=== PATIENT | female | born 1975 | race African-American/Black ===

== ENCOUNTER 2020-08-05 12:45 | Inpatient (IN) | payer OTHER ==
--- NOTE | 2020-08-05 13:03 | BHS.RME ---
Substance Use & Tx History - Substance Use History Cocaine-Crack Substance amount: $200-300 Frequency of use: Daily Substance route: Smoking Date of Last Use: 08/05/20 (started age 14) Marijuana/Hashish Substance amount: 1 blunt Frequency of use: Less than 5 times a year Substance route: Smoking Date of Last Use: 08/05/20 (started age 14) Alcohol Substance amount: 1/2 E&J pint Frequency of use: Daily Substance route: Oral Date of Last Use: 08/05/20 (started age 14) Nicotine Substance amount: 1 pack Frequency of use: Daily Substance route: Smoking Date of Last Use: 08/05/20 (started age 9) Physical/Psych/Mental Status - Behavior General Behavior: Increased activity (restlessness, agitation) Eye Contact: Normal - Cooperativeness Cooperativeness: Cooperative - Thinking Thought Processes: Tight, Logical, Goal Directed - Physical Health Problems Is patient presently having any pain?: No Does patient presently have any injuries (include location): No Does patient currently have a fever: No Is patient : No CIWA Nausea/Vomitin Muscle Tremors: 2 Anxiety: 4-Mod. Anxious/Guarded Agitation: 4-Moderately Restless Paroxysmal Sweats: 3 Orientation: 0-Oriented Tacttile Disturbances: 0-None Auditory Disturbances: 0-None Visual Disturbances: 0-None Headache: 2-Mild CIWA-Ar Total Score: 17
--- NOTE | 2020-08-05 13:28 | HP ---
CIWA Score Nausea/Vomitin Muscle Tremors: 2 Anxiety: 4-Mod. Anxious/Guarded Agitation: 4-Moderately Restless Paroxysmal Sweats: 3 Orientation: 0-Oriented Tacttile Disturbances: 0-None Auditory Disturbances: 0-None Visual Disturbances: 0-None Headache: 2-Mild CIWA-Ar Total Score: 17 - Admission Criteria OASAS Guidelines: Admission for Medically Managed Detox: Requires at least one of the followin. CIWA greater than 12 2. Seizures within the past 24 hours 3. Delirium tremens within the past 24 hours 4. Hallucinations within the past 24 hours 5. Acute intervention needed for co occurring medical disorder 6. Acute intervention needed for co occurring psychiatric disorder 7. Severe withdrawal that cannot be handled at a lower level of care (continued vomiting, continued diarrhea, abnormal vital signs) requiring intravenous medication and/or fluids 8. Admitting History and Physical - Admission Chief Complaint: Ms. Haque is a 45 yo woman who presents to [facility] requesting admission to detox for alcohol use disorder. History of Present Illness: Ms. Haque is a 45 yo woman who presents to [facility] requesting admission to detox for alcohol use disorder. This is her first [facility] admission. 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 Nicotine Substance amount: 1 pack Frequency of use: Daily Substance route: Smoking Date of Last Use: 08/05/20 (started age 9) History Source: Patient Limitations to Obtaining History: No Limitations Admission ROS BHS - HPI Exam Limitations: No Limitations - Ebola screening Have you traveled outside of the country in the last 21 days: No Have you been sick,other than usual withdrawal symptoms: No Do you have a fever: No - Review of Systems Constitutional: No Symptoms Reported EENT: reports: Blurred Vision (uses reading glasses, not with her today) Respiratory: reports: No Symptoms reported Cardiac: reports: No Symptoms Reported GI: reports: Nausea : reports: No Symptoms Reported Musculoskeletal: reports: Back Pain (radiates anteriorly to bilateral, left greater than right hip area and lateral lower abdomen. Tx at home with Motrin ineffectively. Has had in the past and treated with left hip injection. Sx began about 4 days ago) Integumentary: reports: No Symptoms Reported Neuro: reports: No Symptoms reported Hematology: reports: No Symptoms Reported Psychiatric: reports: Anxious, Depressed (no SI) Patient History - Smoking Cessation Smoking history: Current every day smoker Have you smoked in the past 12 months: Yes Aproximately how many cigarettes per day: 20 Hx Chewing Tobacco Use: No Initiated information on smoking cessation: Yes 'Breaking Loose' booklet given: 08/05/20 Admission Physical Exam BHS - Vital Signs Vital Signs: BP 146/88, HR 87, RR 12, temp 97.6 UDS: THC, GEM IRINA 0.000 - Physical General Appearance: Yes: Nourished, Appropriately Dressed, Moderate Distress (low back pain) HEENTM: Yes: EOMI, Hearing grossly Normal, Normocephalic, Normal Voice Respiratory: Yes: Lungs Clear, No Respiratory Distress, No Accessory Muscle Use Neck: Yes: Within Normal Limits, Supple Breast: Yes: Breast Exam Deferred Cardiology: Yes: Regular Rhythm, Regular Rate Abdominal: Yes: Normal Bowel Sounds, Non Tender, Soft, Protuberent Genitourinary: Yes: Other (deferred) Back: Yes: Normal Inspection Musculoskeletal: Yes: Gait Steady Extremities: Yes: Normal Inspection, Non-Tender Neurological: Yes: Alert, Motor Strength 5/5, Normal Response, Other (intact LT in legs) Integumentary: Yes: Within Normal Limits - Diagnostic (1) Alcohol abuse with withdrawal, uncomplicated Current Visit: Yes Status: Acute (2) Cocaine abuse Current Visit: Yes Status: Acute (3) Cannabis abuse Current Visit: Yes Status: Acute (4) Nicotine dependence Current Visit: Yes Status: Acute Qualifiers: Nicotine product type: cigarettes Substance use status: uncomplicated Qualified Code(s): F17.210 - Nicotine dependence, cigarettes, uncomplicated (5) HTN (hypertension) Current Visit: Yes Status: Chronic (6) Diabetes Current Visit: Yes Status: Chronic (7) Bipolar 1 disorder Current Visit: Yes Status: Chronic (8) Low back pain Current Visit: Yes Status: Acute Qualifiers: Chronicity: acute Comment: 1. by hx, hip pain treated with injection, this pain is similar per pt 2. trial of NSAIDs 3. Lidoderm patch Cleared for Admission S - Detox or Rehab [facility] Level of Care: Medically Managed Detox Regimen/Protocol: Librium Breathalyzer - Breathalyzer Breathalyzer: 0 Inpatient Rehab Admission - Rehab Decision to Admit Inpatient rehab admission?: No
[2020-08-05] MEDS ORDERED: MAGNESIUM HYDROX 2400MG/30ML ORAL SUSPENSION 30 ML CUP PO PRN (13:51)
[2020-08-05] MEDS ORDERED: NICOTINE POLACRILEX 2 MG GUM BUC PRN (13:51)
[2020-08-05] MEDS ORDERED: BISMUTH SUBSALICYLATE 262 MG/15 ML BTL PO PRN (13:51)
[2020-08-05] MEDS ORDERED: ONDANSETRON *ODT* 4 MG TABLET SL PRN (13:51)
[2020-08-05] MEDS ORDERED: chlordiazePOXIDE HCL 25 MG CAPSULE PO PRN (13:51)
[2020-08-05] MEDS ORDERED: MAGNESIUM CITRATE 300 ML BOTTLE PO PRN (13:51)
[2020-08-05] MEDS ORDERED: ACETAMINOPHEN 325 MG TABLET (FP) PO PRN ×2 (13:51)
[2020-08-05] MEDS ORDERED: MAG HYDROX/AL HYDROX/SIMETH 30 ML UNIT-DOSE CUP PO PRN (13:51)
[2020-08-05] MEDS ORDERED: MENTHOL/PHENOL 1 EACH UD MM PRN (13:51)
[2020-08-05] MEDS ORDERED: IBUPROFEN 400 MG TABLET (FP) PO ONE (13:53)
[2020-08-05] MEDS ORDERED: METHOCARBAMOL 500 MG TABLET ONE (13:54)
[2020-08-05] MEDS ORDERED: LIDOCAINE 5% TOPICAL PATCH TP PRN (13:56)
[2020-08-05 13:57] VITALS: BMI 32.3
[2020-08-05] MEDS: IBUPROFEN 400 MG TABLET (FP) PO PRN ×2 (13:57→18:14)
[2020-08-05] MEDS: METHOCARBAMOL 500 MG TABLET PO PRN ×2 (13:58→22:17)
[2020-08-05] MEDS ORDERED: hydrOXYzine PAMOATE 25 MG CAPSULE (FP) PO SCH (14:00)
[2020-08-05] MEDS ORDERED: hydrOXYzine PAMOATE 25 MG CAPSULE (FP) PO PRN (14:31)
[2020-08-05] MEDS: NICOTINE 21 MG/24 HOURS TOPICAL PATCH TD SCH (14:39)
[2020-08-05] MEDS: metFORMIN HCL 500 MG TABLET (FP) PO SCH ×2 (14:44→17:16)
[2020-08-05 17:39] LABS: ALBUMIN 3.9 g/dl (3.4-5.0); BILIRUBIN,TOTAL 0.4 mg/dL (0.2-1); BLOOD UREA NITROGEN 8.1 mg/dL (7-18); CREATININE 0.9 mg/dL (0.55-1.3); POTASSIUM 3.8 mmol/L (3.5-5.1); TOT PROT 7.7 g/dl (6.4-8.2)
[2020-08-05 17:45] LABS: HEMATOCRIT 39.2 % (32.4-45.2); HEMOGLOBIN 13.4 GM/dL (10.7-15.3); MCH 31.5 pg (25.7-33.7); MCHC 34.3 g/dl (32.0-36.0); MEAN PLT VOLUME 9.1 fl (7.5-11.1); PLATELET COUNT 344 K/MM3 (134-434); RBC 4.26 M/mm3 (3.60-5.2); WHITE BLOOD COUNT 7.9 K/mm3 (4.0-10.0)
[2020-08-05] MEDS: chlordiazePOXIDE HCL 25 MG CAPSULE PO SCH ×2 (18:14→22:17)
[2020-08-05] MEDS ORDERED: LIDOCAINE PATCH REMOVAL MC SCH (22:00)
[2020-08-05] MEDS: MELATONIN 5 MG TABLETS PO SCH (22:17)
[2020-08-05] MEDS: THIAMINE HCL 100 MG TABLET (FP) PO SCH (22:17)
[2020-08-06] MEDS: chlordiazePOXIDE HCL 25 MG CAPSULE PO SCH ×4 (06:23→23:30)
[2020-08-06] MEDS: metFORMIN HCL 500 MG TABLET (FP) PO SCH ×2 (06:23→17:25)
[2020-08-06] MEDS: METHOCARBAMOL 500 MG TABLET PO PRN ×2 (06:24→17:26)
[2020-08-06] MEDS: IBUPROFEN 400 MG TABLET (FP) PO PRN (06:24)
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
[2020-08-06] MEDS ORDERED: diphenhydrAMINE HCL 50 MG CAPSULE PO PRN (10:01)
--- NOTE | 2020-08-06 10:25 | EKG ---
Test Reason : Blood Pressure : / mmHG Vent. Rate : 080 BPM Atrial Rate : 080 BPM P-R Int : 164 ms QRS Dur : 072 ms QT Int : 386 ms P-R-T Axes : 044 008 045 degrees QTc Int : 445 ms NORMAL SINUS RHYTHM NORMAL ECG WHEN COMPARED WITH ECG OF 05-AUG-2020 12:43, NO SIGNIFICANT CHANGE WAS FOUND Confirmed by HIMANSHU CHAO MD ([id number]) on 08/06/2020 10:25:37 AM Referred By: Confirmed By:HIMANSHU CHAO MD
[2020-08-06] MEDS: NICOTINE 21 MG/24 HOURS TOPICAL PATCH TD SCH (10:43)
[2020-08-06] MEDS: PRENATAL VITAMINS W/ FOLIC ACID TABLET (FP) PO SCH (10:43)
[2020-08-06] MEDS ORDERED: LIDOCAINE 5% TOPICAL PATCH TP ONE (11:57)
--- NOTE | 2020-08-06 12:02 | PN ---
S CIWA - CIWA Score Nausea/Vomitin-No Nausea/No Vomiting Muscle Tremors: 3 Anxiety: 2 Agitation: 3 Paroxysmal Sweats: 2 Orientation: 0-Oriented Tacttile Disturbances: 0-None Auditory Disturbances: 0-None Visual Disturbances: 0-None Headache: 0-None Present CIWA-Ar Total Score: 10 S Progress Note (SOAP) Subjective: low back pain sweats interrupted sleep Objective: 08/06/20 12:01 Vital Signs Temperature 97.1 F L 08/06/20 08:52 Pulse Rate 90 08/06/20 08:52 Respiratory Rate 18 08/06/20 08:52 Blood Pressure 107/48 L 08/06/20 08:52 O2 Sat by Pulse Oximetry (%) 97 08/06/20 08:52 Laboratory Tests 08/05/20 08/05/20 08/05/20 14:02 14:25 14:25 WBC 7.9 RBC 4.26 Hgb 13.4 Hct 39.2 MCV 92.0 MCH 31.5 MCHC 34.3 RDW 13.0 Plt Count 344 MPV 9.1 Sodium 136 Potassium 3.8 Chloride 104 Carbon Dioxide 24 Anion Gap 7 L BUN 8.1 Creatinine 0.9 Est GFR (CKD-EPI)AfAm 88.25 Est GFR (CKD-EPI)NonAf 76.14 POC Glucometer 177 Random Glucose 157 H Calcium 9.0 Total Bilirubin 0.4 AST 10 L ALT 13 Alkaline Phosphatase 99 Total Protein 7.7 Albumin 3.9 Syphilis Serology RPR Titer COVID-19 (ANNIKA) HIV Ag/Ab Combo Qual 08/05/20 08/05/20 08/05/20 14:25 14:25 14:25 WBC RBC Hgb Hct MCV MCH MCHC RDW Plt Count MPV Sodium Potassium Chloride Carbon Dioxide Anion Gap BUN Creatinine Est GFR (CKD-EPI)AfAm Est GFR (CKD-EPI)NonAf POC Glucometer Random Glucose Calcium Total Bilirubin AST ALT Alkaline Phosphatase Total Protein Albumin Syphilis Serology Reactive A* RPR Titer COVID-19 (ANNIKA) Not detected HIV Ag/Ab Combo Qual Negative 08/05/20 08/05/20 08/06/20 14:25 16:51 06:22 WBC RBC Hgb Hct MCV MCH MCHC RDW Plt Count MPV Sodium Potassium Chloride Carbon Dioxide Anion Gap BUN Creatinine Est GFR (CKD-EPI)AfAm Est GFR (CKD-EPI)NonAf POC Glucometer 129 150 Random Glucose Calcium Total Bilirubin AST ALT Alkaline Phosphatase Total Protein Albumin Syphilis Serology RPR Titer Reactive 1:1 H COVID-19 (ANNIKA) HIV Ag/Ab Combo Qual labs noted aaox3 lying in bed no acute distress Assessment: 08/06/20 12:01 withdrawals Plan: continue detox lidocaine patch ordered motrin 800mg prn roboxin prn
[2020-08-06] MEDS ORDERED: LIDOCAINE PATCH REMOVAL MC SCH (22:00)
[2020-08-06] MEDS: MIRTAZAPINE 15 MG TABLET (FP) PO SCH (23:29)
[2020-08-06] MEDS: THIAMINE HCL 100 MG TABLET (FP) PO SCH (23:29)
[2020-08-06] MEDS: MELATONIN 5 MG TABLETS PO SCH (23:29)
[2020-08-07] MEDS: chlordiazePOXIDE HCL 25 MG CAPSULE PO SCH ×4 (05:28→21:59)
[2020-08-07] MEDS: IBUPROFEN 400 MG TABLET (FP) PO PRN (05:29)
[2020-08-07] MEDS: METHOCARBAMOL 500 MG TABLET PO PRN ×2 (05:29→16:59)
[2020-08-07] MEDS: metFORMIN HCL 500 MG TABLET (FP) PO SCH ×2 (07:00→16:59)
[2020-08-07] MEDS: LIDOCAINE 5% TOPICAL PATCH TP SCH (11:52)
[2020-08-07] MEDS: PRENATAL VITAMINS W/ FOLIC ACID TABLET (FP) PO SCH (11:53)
[2020-08-07] MEDS: NICOTINE 21 MG/24 HOURS TOPICAL PATCH TD SCH (11:53)
--- NOTE | 2020-08-07 18:43 | PN ---
S CIWA - CIWA Score Nausea/Vomitin-No Nausea/No Vomiting Muscle Tremors: 2 Anxiety: 4-Mod. Anxious/Guarded Agitation: 0-Normal Activity Paroxysmal Sweats: 2 Orientation: 0-Oriented Tacttile Disturbances: 0-None Auditory Disturbances: 0-None Visual Disturbances: 1-Very Mild Sensitivity Headache: 0-None Present CIWA-Ar Total Score: 9 BHS Progress Note (SOAP) Subjective: Anxious, Fatigue, Sweating, Tremors, Body Aches. Objective: Patient A & O X 3; In No Acute Distress. 08/07/20 18:41 Vital Signs Temperature 97.5 F L 08/07/20 17:32 Pulse Rate 93 H 08/07/20 17:32 Respiratory Rate 16 08/07/20 17:32 Blood Pressure 103/63 08/07/20 17:32 O2 Sat by Pulse Oximetry (%) 100 08/07/20 17:32 Laboratory Tests 08/05/20 08/05/20 08/05/20 14:02 14:25 14:25 WBC 7.9 RBC 4.26 Hgb 13.4 Hct 39.2 MCV 92.0 MCH 31.5 MCHC 34.3 RDW 13.0 Plt Count 344 MPV 9.1 Sodium 136 Potassium 3.8 Chloride 104 Carbon Dioxide 24 Anion Gap 7 L BUN 8.1 Creatinine 0.9 Est GFR (CKD-EPI)AfAm 88.25 Est GFR (CKD-EPI)NonAf 76.14 POC Glucometer 177 Random Glucose 157 H Calcium 9.0 Total Bilirubin 0.4 AST 10 L ALT 13 Alkaline Phosphatase 99 Total Protein 7.7 Albumin 3.9 Syphilis Serology RPR Titer COVID-19 (ANNIKA) HIV Ag/Ab Combo Qual 08/05/20 08/05/20 08/05/20 14:25 14:25 14:25 WBC RBC Hgb Hct MCV MCH MCHC RDW Plt Count MPV Sodium Potassium Chloride Carbon Dioxide Anion Gap BUN Creatinine Est GFR (CKD-EPI)AfAm Est GFR (CKD-EPI)NonAf POC Glucometer Random Glucose Calcium Total Bilirubin AST ALT Alkaline Phosphatase Total Protein Albumin Syphilis Serology Reactive A* RPR Titer COVID-19 (ANNIKA) Not detected HIV Ag/Ab Combo Qual Negative 08/05/20 08/05/20 08/06/20 14:25 16:51 06:22 WBC RBC Hgb Hct MCV MCH MCHC RDW Plt Count MPV Sodium Potassium Chloride Carbon Dioxide Anion Gap BUN Creatinine Est GFR (CKD-EPI)AfAm Est GFR (CKD-EPI)NonAf POC Glucometer 129 150 Random Glucose Calcium Total Bilirubin AST ALT Alkaline Phosphatase Total Protein Albumin Syphilis Serology RPR Titer Reactive 1:1 H COVID-19 (ANNIKA) HIV Ag/Ab Combo Qual 08/06/20 08/07/20 08/07/20 16:53 05:32 16:48 WBC RBC Hgb Hct MCV MCH MCHC RDW Plt Count MPV Sodium Potassium Chloride Carbon Dioxide Anion Gap BUN Creatinine Est GFR (CKD-EPI)AfAm Est GFR (CKD-EPI)NonAf POC Glucometer 205 192 144 Random Glucose Calcium Total Bilirubin AST ALT Alkaline Phosphatase Total Protein Albumin Syphilis Serology RPR Titer COVID-19 (ANNIKA) HIV Ag/Ab Combo Qual Lab Results noted. Detox Admission RPR Result noted: Reactive A; Reactive; Titer 1:1. Patient reports that she completed treatment for Syphilis in the past. 08/07/20 18:42 Assessment: 08/07/20 18:42 WITHDRAWAL SYMPTOMS. REACTIVE RPR. Plan: Continue Detox. Increase Daily Oral Water Intake. Encourage Ambulation.
[2020-08-07] MEDS: MIRTAZAPINE 15 MG TABLET (FP) PO SCH (21:57)
[2020-08-07] MEDS: MELATONIN 5 MG TABLETS PO SCH (21:58)
[2020-08-07] MEDS: THIAMINE HCL 100 MG TABLET (FP) PO SCH (21:58)
[2020-08-08] MEDS ORDERED: chlordiazePOXIDE HCL 10 MG CAPSULE PO PRN
[2020-08-08] MEDS: METHOCARBAMOL 500 MG TABLET PO PRN ×2 (06:38→17:54)
[2020-08-08] MEDS: chlordiazePOXIDE HCL 10 MG CAPSULE PO SCH ×3 (06:38→17:53)
[2020-08-08] MEDS: metFORMIN HCL 500 MG TABLET (FP) PO SCH ×2 (06:38→17:53)
[2020-08-08] MEDS: PRENATAL VITAMINS W/ FOLIC ACID TABLET (FP) PO SCH (12:14)
[2020-08-08] MEDS: LIDOCAINE 5% TOPICAL PATCH TP SCH (12:14)
[2020-08-08] MEDS: NICOTINE 21 MG/24 HOURS TOPICAL PATCH TD SCH (12:14)
--- NOTE | 2020-08-08 17:15 | PN ---
S CIWA - CIWA Score Nausea/Vomitin-No Nausea/No Vomiting Muscle Tremors: 2 Anxiety: 1-Mildly Anxious Agitation: 1-Slight > Activity Paroxysmal Sweats: 2 Orientation: 0-Oriented Tacttile Disturbances: 0-None Auditory Disturbances: 0-None Visual Disturbances: 0-None Headache: 0-None Present CIWA-Ar Total Score: 6 BHS Progress Note (SOAP) Subjective: Back pain Objective: 08/08/20 17:12 Last Vital Signs Temp Pulse Resp BP Pulse Ox 98.0 F 63 20 105/52 L 98 08/08/20 05:37 08/08/20 05:37 08/08/20 05:37 08/08/20 05:37 08/08/20 05:37 Laboratory Tests 08/05/20 08/05/20 08/05/20 14:02 14:25 14:25 WBC 7.9 RBC 4.26 Hgb 13.4 Hct 39.2 MCV 92.0 MCH 31.5 MCHC 34.3 RDW 13.0 Plt Count 344 MPV 9.1 Sodium 136 Potassium 3.8 Chloride 104 Carbon Dioxide 24 Anion Gap 7 L BUN 8.1 Creatinine 0.9 Est GFR (CKD-EPI)AfAm 88.25 Est GFR (CKD-EPI)NonAf 76.14 POC Glucometer 177 Random Glucose 157 H Calcium 9.0 Total Bilirubin 0.4 AST 10 L ALT 13 Alkaline Phosphatase 99 Total Protein 7.7 Albumin 3.9 Syphilis Serology RPR Titer COVID-19 (ANNIKA) HIV Ag/Ab Combo Qual 08/05/20 08/05/20 08/05/20 14:25 14:25 14:25 WBC RBC Hgb Hct MCV MCH MCHC RDW Plt Count MPV Sodium Potassium Chloride Carbon Dioxide Anion Gap BUN Creatinine Est GFR (CKD-EPI)AfAm Est GFR (CKD-EPI)NonAf POC Glucometer Random Glucose Calcium Total Bilirubin AST ALT Alkaline Phosphatase Total Protein Albumin Syphilis Serology Reactive A* RPR Titer COVID-19 (ANNIKA) Not detected HIV Ag/Ab Combo Qual Negative 08/05/20 08/05/20 08/06/20 14:25 16:51 06:22 WBC RBC Hgb Hct MCV MCH MCHC RDW Plt Count MPV Sodium Potassium Chloride Carbon Dioxide Anion Gap BUN Creatinine Est GFR (CKD-EPI)AfAm Est GFR (CKD-EPI)NonAf POC Glucometer 129 150 Random Glucose Calcium Total Bilirubin AST ALT Alkaline Phosphatase Total Protein Albumin Syphilis Serology RPR Titer Reactive 1:1 H COVID-19 (ANNIKA) HIV Ag/Ab Combo Qual 08/06/20 08/07/20 08/07/20 16:53 05:32 16:48 WBC RBC Hgb Hct MCV MCH MCHC RDW Plt Count MPV Sodium Potassium Chloride Carbon Dioxide Anion Gap BUN Creatinine Est GFR (CKD-EPI)AfAm Est GFR (CKD-EPI)NonAf POC Glucometer 205 192 144 Random Glucose Calcium Total Bilirubin AST ALT Alkaline Phosphatase Total Protein Albumin Syphilis Serology RPR Titer COVID-19 (ANNIKA) HIV Ag/Ab Combo Qual 08/08/20 08/08/20 06:37 16:41 WBC RBC Hgb Hct MCV MCH MCHC RDW Plt Count MPV Sodium Potassium Chloride Carbon Dioxide Anion Gap BUN Creatinine Est GFR (CKD-EPI)AfAm Est GFR (CKD-EPI)NonAf POC Glucometer 135 168 Random Glucose Calcium Total Bilirubin AST ALT Alkaline Phosphatase Total Protein Albumin Syphilis Serology RPR Titer COVID-19 (ANNIKA) HIV Ag/Ab Combo Qual Labs reviewed: hyperglycemia and abnormal RPR noted Assessment: 08/08/20 17:13 Withdrawal sxs Noted with hyperglycemia and latent syphilis Plan: Continue detox Encourage PO water intake Hyperglycemia: secondary to DMT2, monitor FS, continue diabetic regimen 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
[2020-08-08] MEDS: IBUPROFEN 400 MG TABLET (FP) PO PRN (17:55)
--- NOTE | 2020-08-08 22:12 | DS ---
[facility] Detox Discharge Summary Admission Date: 08/05/20 Discharge Date: 08/09/20 - History Present History: Alcohol Dependence, Cannabis Dependence, Cocaine Dependence Pertinent Past History: NICOTINE DEP HTN +RPR DM MOOD D/O - Physical Exam Results Vital Signs: Vital Signs Temperature 97.1 F L 08/08/20 17:08 Pulse Rate 75 08/08/20 17:08 Respiratory Rate 18 08/08/20 17:08 Blood Pressure 135/66 08/08/20 17:08 O2 Sat by Pulse Oximetry (%) 98 08/08/20 05:37 - Treatment Hospital Course: Discharged Condition Good Patient has Accepted a Rehab Referral to: DECLINED - Medication Discharge Medications: Ambulatory Orders Diphenhydramine [Benadryl -] 100 mg PO HS 08/05/20 Metformin HCl [Glucophage] 1,000 mg PO BID 08/05/20 Mirtazapine 45 mg PO HS 08/05/20 - Diagnosis (1) Alcohol abuse with withdrawal, uncomplicated Status: Acute (2) Cannabis abuse Status: Chronic (3) Cocaine dependence Status: Chronic (4) Positive RPR test Status: Chronic (5) Substance induced mood disorder Status: Chronic (6) Substance-induced sleep disorder Status: Chronic (7) Bipolar 1 disorder Status: Chronic (8) Diabetes Status: Chronic (9) HTN (hypertension) Status: Chronic (10) Low back pain Status: Chronic Qualifiers: Chronicity: acute (11) Mood disorder Status: Chronic (12) Nicotine dependence Status: Chronic Qualifiers: Nicotine product type: cigarettes Substance use status: uncomplicated Qualified Code(s): F17.210 - Nicotine dependence, cigarettes, uncomplicated - AMA Did Patient Leave Against Medical Advice: Yes
[2020-08-08 22:53] VITALS: BP 98/59; PULSE 87; TEMP 97.3
[2020-08-09] MEDS: MELATONIN 5 MG TABLETS PO SCH (00:24)
[2020-08-09] MEDS: chlordiazePOXIDE HCL 10 MG CAPSULE PO SCH (00:25)
[2020-08-09] MEDS: THIAMINE HCL 100 MG TABLET (FP) PO SCH (00:25)
[2020-08-09] MEDS: MIRTAZAPINE 15 MG TABLET (FP) PO SCH (00:25)
[2020-08-09] MEDS ORDERED: chlordiazePOXIDE HCL 10 MG CAPSULE PO SCH (05:00)
--- NOTE | 2020-08-09 17:11 | EKG ---
Test Reason : Blood Pressure : / mmHG Vent. Rate : 081 BPM Atrial Rate : 081 BPM P-R Int : 170 ms QRS Dur : 074 ms QT Int : 368 ms P-R-T Axes : 052 -02 045 degrees QTc Int : 427 ms NORMAL SINUS RHYTHM NORMAL ECG NO PREVIOUS ECGS AVAILABLE Confirmed by JORDAN MORELOS MD ([id number]) on 08/09/2020 5:11:07 PM Referred By: Confirmed By:JORDAN MORELOS MD
[2020-08-10] MEDS ORDERED: chlordiazePOXIDE HCL 10 MG CAPSULE PO ONE (05:00)
== END 2020-08-08 07:31 | disposition left against medical advice (07) | DRG 770 ==
LOC: YASAS 12:45 → Y6N 14:10
PROVIDERS: ADMIT Allergy & Immunology; ATTEND Allergy & Immunology
PROC: HZ2ZZZZ Detoxification Services for Substance Abuse Treatment (ICD-10-PCS; principal; 2020-08-05)
DX: F10.230 Alcohol dependence with withdrawal, uncomplicated (principal); F14.20 Cocaine dependence, uncomplicated; F12.20 Cannabis dependence, uncomplicated; F17.210 Nicotine dependence, cigarettes, uncomplicated; F19.282 Other psychoactive substance dependence with psychoactive substance-induced sleep disorder; F19.24 Other psychoactive substance dependence with psychoactive substance-induced mood disorder; F39 Unspecified mood [affective] disorder; F31.9 Bipolar disorder, unspecified; A53.0 Latent syphilis, unspecified as early or late; I10 Essential (primary) hypertension; M54.5 Low back pain; Z62.810 Personal history of physical and sexual abuse in childhood; Z56.0 Unemployment, unspecified
CPT/HCPCS: 36415; 80053; 82962; 85027; 86593; 86780; 87389; 93005; 93010; U0003

== ENCOUNTER 2021-03-09 10:41 | Inpatient (IN) | payer OTHER ==
[2021-03-09 11:32] VITALS: BMI 31.2
[2021-03-09] MEDS ORDERED: BISMUTH SUBSALICYLATE 262 MG/15 ML BTL PO PRN (11:33)
[2021-03-09] MEDS ORDERED: ONDANSETRON *ODT* 4 MG TABLET SL PRN (11:33)
[2021-03-09] MEDS ORDERED: IBUPROFEN 400 MG TABLET (FP) PO PRN (11:33)
[2021-03-09] MEDS ORDERED: MENTHOL/PHENOL 1 EACH UD MM PRN (11:33)
[2021-03-09] MEDS ORDERED: NICOTINE POLACRILEX 2 MG GUM BUC PRN (11:33)
[2021-03-09] MEDS ORDERED: ACETAMINOPHEN 325 MG TABLET (FP) PO PRN ×2 (11:33)
[2021-03-09] MEDS ORDERED: MAGNESIUM HYDROX 2400MG/30ML ORAL SUSPENSION 30 ML CUP PO PRN (11:33)
[2021-03-09] MEDS ORDERED: MAGNESIUM CITRATE 300 ML BOTTLE PO PRN (11:33)
[2021-03-09] MEDS ORDERED: MAG HYDROX/AL HYDROX/SIMETH 30 ML UNIT-DOSE CUP PO PRN (11:33)
[2021-03-09] MEDS ORDERED: METHOCARBAMOL 500 MG TABLET PO PRN (11:33)
[2021-03-09] MEDS: PRENATAL VITAMINS W/ FOLIC ACID TABLET (FP) PO SCH (12:33)
[2021-03-09] MEDS: NICOTINE 21 MG/24 HOURS TOPICAL PATCH TD SCH (12:33)
[2021-03-09 12:55] LABS: HEMATOCRIT 39.9 % (32.4-45.2); HEMOGLOBIN 13.3 GM/dL (10.7-15.3); MCH 30.2 pg (25.7-33.7); MCHC 33.4 g/dl (32.0-36.0); MEAN CELL VOLUME 90.6 fl (80-96); PLATELET COUNT 361 K/MM3 (134-434); RBC 4.41 M/mm3 (3.60-5.2); RDW 12.9 % (11.6-15.6); WHITE BLOOD COUNT 8.2 K/mm3 (4.0-10.0)
[2021-03-09] MEDS: hydrOXYzine PAMOATE 25 MG CAPSULE (FP) PO SCH ×3 (13:00→22:12)
[2021-03-09 17:06] LABS: ALBUMIN 3.8 g/dl (3.4-5.0); BLOOD UREA NITROGEN 15.2 mg/dL (7-18); CALCIUM 9.3 mg/dL (8.5-10.1)
[2021-03-09 17:09] LABS: CREATININE 0.9 mg/dL (0.55-1.3)
[2021-03-09 17:11] LABS: BILIRUBIN,TOTAL 0.3 mg/dL (0.2-1); TOT PROT 7.8 g/dl (6.4-8.2)
[2021-03-09] MEDS: metFORMIN HCL 500 MG TABLET (FP) PO SCH (17:17)
[2021-03-09] MEDS: THIAMINE HCL 100 MG TABLET (FP) PO SCH (22:12)
[2021-03-09] MEDS: MELATONIN 5 MG TABLETS PO SCH (22:12)
[2021-03-10] MEDS: hydrOXYzine PAMOATE 25 MG CAPSULE (FP) PO SCH ×2 (05:41→09:57)
[2021-03-10] MEDS: metFORMIN HCL 500 MG TABLET (FP) PO SCH ×2 (06:02→18:05)
[2021-03-10] MEDS: PRENATAL VITAMINS W/ FOLIC ACID TABLET (FP) PO SCH (09:57)
[2021-03-10] MEDS: NICOTINE 21 MG/24 HOURS TOPICAL PATCH TD SCH (09:57)
[2021-03-10] MEDS: hydrOXYzine PAMOATE 25 MG CAPSULE (FP) PO PRN (18:07)
[2021-03-10] MEDS: MELATONIN 5 MG TABLETS PO SCH (23:03)
[2021-03-10] MEDS: THIAMINE HCL 100 MG TABLET (FP) PO SCH (23:03)
[2021-03-11] MEDS: metFORMIN HCL 500 MG TABLET (FP) PO SCH (06:31)
[2021-03-11] MEDS: hydrOXYzine PAMOATE 25 MG CAPSULE (FP) PO PRN (06:33)
[2021-03-11] MEDS: PRENATAL VITAMINS W/ FOLIC ACID TABLET (FP) PO SCH (10:14)
[2021-03-11] MEDS: NICOTINE 21 MG/24 HOURS TOPICAL PATCH TD SCH (10:14)
[2021-03-11 13:08] VITALS: BP 108/67; PULSE 71; TEMP 96.1
== END 2021-03-11 14:22 | disposition other institution (70) | DRG 774 ==
LOC: YASAS 10:41 → Y3N 11:35
PROVIDERS: ADMIT Allergy & Immunology; ATTEND Allergy & Immunology
PROC: HZ2ZZZZ Detoxification Services for Substance Abuse Treatment (ICD-10-PCS; principal; 2021-03-09)
DX: F10.230 Alcohol dependence with withdrawal, uncomplicated (principal); F14.20 Cocaine dependence, uncomplicated; F12.20 Cannabis dependence, uncomplicated; F17.210 Nicotine dependence, cigarettes, uncomplicated; F19.282 Other psychoactive substance dependence with psychoactive substance-induced sleep disorder; F19.24 Other psychoactive substance dependence with psychoactive substance-induced mood disorder; F31.9 Bipolar disorder, unspecified; F39 Unspecified mood [affective] disorder; I10 Essential (primary) hypertension; E11.9 Type 2 diabetes mellitus without complications; M54.5 Low back pain
CPT/HCPCS: 36415; 80053; 81025; 82962; 85027; 86593; 86780; C9803; U0003; U0005

== ENCOUNTER 2021-03-11 14:54 | Inpatient (IN) | payer OTHER ==
[2021-03-11] MEDS ORDERED: LOPERAMIDE HCL 2 MG CAPSULE PO PRN (15:10)
[2021-03-11] MEDS ORDERED: MAGNESIUM HYDROX 2400MG/30ML ORAL SUSPENSION 30 ML CUP PO PRN (15:10)
[2021-03-11] MEDS ORDERED: NICOTINE POLACRILEX 2 MG GUM BUC PRN (15:10)
[2021-03-11] MEDS ORDERED: MAGNESIUM CITRATE 300 ML BOTTLE PO PRN (15:10)
[2021-03-11] MEDS ORDERED: P-EPHED 60MG/TRIPROLIDI 2.5MG TABLET PO PRN (15:10)
[2021-03-11] MEDS ORDERED: hydrOXYzine PAMOATE 25 MG CAPSULE (FP) PO PRN (15:10)
[2021-03-11] MEDS ORDERED: ACETAMINOPHEN 325 MG TABLET (FP) PO PRN (15:10)
[2021-03-11] MEDS: metFORMIN HCL 500 MG TABLET (FP) PO SCH (16:59)
[2021-03-11] MEDS: guaiFENesin 200 MG/10 ML 10 ML UNIT-DOSE CUPS PO PRN (17:22)
[2021-03-11] MEDS ORDERED: MELATONIN 5 MG TABLETS PO SCH (22:00)
[2021-03-11] MEDS: THIAMINE HCL 100 MG TABLET (FP) PO SCH (22:13)
[2021-03-11] MEDS: MENTHOL/PHENOL 1 EACH UD MM PRN (22:13)
[2021-03-12] MEDS: guaiFENesin 200 MG/10 ML 10 ML UNIT-DOSE CUPS PO PRN (06:26)
[2021-03-12] MEDS: metFORMIN HCL 500 MG TABLET (FP) PO SCH ×2 (06:26→18:11)
[2021-03-12] MEDS ORDERED: NICOTINE 14 MG/24 HOURS TOPICAL PATCH TD SCH (10:00)
[2021-03-12] MEDS: PRENATAL VITAMINS W/ FOLIC ACID TABLET (FP) PO SCH (10:31)
[2021-03-12] MEDS: NICOTINE 7 MG/24 HOURS TOPICAL PATCH TD SCH (10:32)
[2021-03-12] MEDS: MENTHOL/PHENOL 1 EACH UD MM PRN (18:13)
[2021-03-12] MEDS: diphenhydrAMINE HCL 25 MG CAPSULE (FP) PO SCH (21:52)
[2021-03-12] MEDS: MIRTAZAPINE 15 MG TABLET (FP) PO SCH (21:52)
[2021-03-12] MEDS: THIAMINE HCL 100 MG TABLET (FP) PO SCH (21:52)
[2021-03-12] MEDS: MAG HYDROX/AL HYDROX/SIMETH 30 ML UNIT-DOSE CUP PO PRN (21:52)
[2021-03-13] MEDS: metFORMIN HCL 500 MG TABLET (FP) PO SCH ×2 (07:51→16:19)
[2021-03-13] MEDS: PRENATAL VITAMINS W/ FOLIC ACID TABLET (FP) PO SCH (12:08)
[2021-03-13] MEDS: NICOTINE 7 MG/24 HOURS TOPICAL PATCH TD SCH (12:08)
[2021-03-13 14:11] LABS: SARS-CoV-2 NAA Not Detected (Not Detected)
[2021-03-13] MEDS: MIRTAZAPINE 15 MG TABLET (FP) PO SCH (21:23)
[2021-03-13] MEDS: diphenhydrAMINE HCL 25 MG CAPSULE (FP) PO SCH (21:23)
[2021-03-13] MEDS: THIAMINE HCL 100 MG TABLET (FP) PO SCH (21:23)
[2021-03-14] MEDS: metFORMIN HCL 500 MG TABLET (FP) PO SCH ×2 (06:18→16:39)
[2021-03-14] MEDS: NICOTINE 7 MG/24 HOURS TOPICAL PATCH TD SCH (09:55)
[2021-03-14] MEDS: PRENATAL VITAMINS W/ FOLIC ACID TABLET (FP) PO SCH (09:55)
[2021-03-14] MEDS: diphenhydrAMINE HCL 25 MG CAPSULE (FP) PO SCH (21:37)
[2021-03-14] MEDS: THIAMINE HCL 100 MG TABLET (FP) PO SCH (21:37)
[2021-03-14] MEDS: MIRTAZAPINE 15 MG TABLET (FP) PO SCH (21:37)
[2021-03-15] MEDS: metFORMIN HCL 500 MG TABLET (FP) PO SCH ×2 (08:01→16:31)
[2021-03-15] MEDS: PRENATAL VITAMINS W/ FOLIC ACID TABLET (FP) PO SCH (09:58)
[2021-03-15] MEDS: NICOTINE 7 MG/24 HOURS TOPICAL PATCH TD SCH (09:59)
[2021-03-15] MEDS: MIRTAZAPINE 15 MG TABLET (FP) PO SCH (21:21)
[2021-03-15] MEDS: THIAMINE HCL 100 MG TABLET (FP) PO SCH (21:21)
[2021-03-15] MEDS: diphenhydrAMINE HCL 25 MG CAPSULE (FP) PO SCH (21:21)
[2021-03-16 06:07] LABS: SARS-CoV-2 NAA Not Detected (Not Detected)
[2021-03-16] MEDS: metFORMIN HCL 500 MG TABLET (FP) PO SCH ×2 (06:15→16:52)
[2021-03-16] MEDS: NICOTINE 7 MG/24 HOURS TOPICAL PATCH TD SCH (10:45)
[2021-03-16] MEDS: PRENATAL VITAMINS W/ FOLIC ACID TABLET (FP) PO SCH (10:46)
[2021-03-16] MEDS: diphenhydrAMINE HCL 25 MG CAPSULE (FP) PO SCH (21:48)
[2021-03-16] MEDS: MIRTAZAPINE 15 MG TABLET (FP) PO SCH (21:48)
[2021-03-16] MEDS: THIAMINE HCL 100 MG TABLET (FP) PO SCH (21:48)
[2021-03-17] MEDS: metFORMIN HCL 500 MG TABLET (FP) PO SCH ×2 (06:23→16:28)
[2021-03-17] MEDS: IBUPROFEN 400 MG TABLET (FP) PO PRN (06:24)
[2021-03-17] MEDS: PRENATAL VITAMINS W/ FOLIC ACID TABLET (FP) PO SCH (10:37)
[2021-03-17] MEDS: NICOTINE 7 MG/24 HOURS TOPICAL PATCH TD SCH (10:38)
[2021-03-17] MEDS: diphenhydrAMINE HCL 25 MG CAPSULE (FP) PO SCH (21:44)
[2021-03-17] MEDS: MIRTAZAPINE 15 MG TABLET (FP) PO SCH (21:44)
[2021-03-17] MEDS: THIAMINE HCL 100 MG TABLET (FP) PO SCH (21:44)
[2021-03-18] MEDS: metFORMIN HCL 500 MG TABLET (FP) PO SCH ×2 (06:17→16:51)
[2021-03-18] MEDS: PRENATAL VITAMINS W/ FOLIC ACID TABLET (FP) PO SCH (10:19)
[2021-03-18] MEDS: NICOTINE 7 MG/24 HOURS TOPICAL PATCH TD SCH (10:19)
[2021-03-18] MEDS: IBUPROFEN 400 MG TABLET (FP) PO PRN (10:20)
[2021-03-18] MEDS: diphenhydrAMINE HCL 25 MG CAPSULE (FP) PO SCH (21:19)
[2021-03-18] MEDS: THIAMINE HCL 100 MG TABLET (FP) PO SCH (21:19)
[2021-03-18] MEDS: MAG HYDROX/AL HYDROX/SIMETH 30 ML UNIT-DOSE CUP PO PRN (21:19)
[2021-03-18] MEDS: MIRTAZAPINE 15 MG TABLET (FP) PO SCH (21:19)
[2021-03-19] MEDS: metFORMIN HCL 500 MG TABLET (FP) PO SCH ×2 (06:36→16:51)
[2021-03-19] MEDS: NICOTINE 7 MG/24 HOURS TOPICAL PATCH TD SCH (09:53)
[2021-03-19] MEDS: PRENATAL VITAMINS W/ FOLIC ACID TABLET (FP) PO SCH (09:54)
[2021-03-19] MEDS: diphenhydrAMINE HCL 25 MG CAPSULE (FP) PO SCH (21:53)
[2021-03-19] MEDS: THIAMINE HCL 100 MG TABLET (FP) PO SCH (21:53)
[2021-03-19] MEDS: MIRTAZAPINE 15 MG TABLET (FP) PO SCH (21:54)
[2021-03-20] MEDS: metFORMIN HCL 500 MG TABLET (FP) PO SCH ×2 (06:24→16:51)
[2021-03-20] MEDS: NICOTINE 7 MG/24 HOURS TOPICAL PATCH TD SCH (12:51)
[2021-03-20] MEDS: PRENATAL VITAMINS W/ FOLIC ACID TABLET (FP) PO SCH (12:51)
[2021-03-20] MEDS: MIRTAZAPINE 15 MG TABLET (FP) PO SCH (21:20)
[2021-03-20] MEDS: diphenhydrAMINE HCL 25 MG CAPSULE (FP) PO SCH (21:20)
[2021-03-20] MEDS: THIAMINE HCL 100 MG TABLET (FP) PO SCH (21:20)
[2021-03-21] MEDS: metFORMIN HCL 500 MG TABLET (FP) PO SCH ×2 (06:07→16:51)
[2021-03-21] MEDS: PRENATAL VITAMINS W/ FOLIC ACID TABLET (FP) PO SCH (10:19)
[2021-03-21] MEDS: NICOTINE 7 MG/24 HOURS TOPICAL PATCH TD SCH (10:19)
[2021-03-21] MEDS: METHOCARBAMOL 500 MG TABLET PO SCH ×2 (13:35→21:48)
[2021-03-21] MEDS: THIAMINE HCL 100 MG TABLET (FP) PO SCH (21:48)
[2021-03-21] MEDS: MIRTAZAPINE 15 MG TABLET (FP) PO SCH (21:48)
[2021-03-21] MEDS: diphenhydrAMINE HCL 25 MG CAPSULE (FP) PO SCH (21:48)
[2021-03-22] MEDS: METHOCARBAMOL 500 MG TABLET PO SCH ×3 (06:27→21:23)
[2021-03-22] MEDS: metFORMIN HCL 500 MG TABLET (FP) PO SCH ×2 (06:27→16:19)
[2021-03-22] MEDS: PRENATAL VITAMINS W/ FOLIC ACID TABLET (FP) PO SCH (10:34)
[2021-03-22] MEDS: NICOTINE 7 MG/24 HOURS TOPICAL PATCH TD SCH (10:34)
[2021-03-22] MEDS: diphenhydrAMINE HCL 25 MG CAPSULE (FP) PO SCH (21:23)
[2021-03-22] MEDS: THIAMINE HCL 100 MG TABLET (FP) PO SCH (21:23)
[2021-03-22] MEDS: MIRTAZAPINE 15 MG TABLET (FP) PO SCH (21:23)
[2021-03-23] MEDS: METHOCARBAMOL 500 MG TABLET PO SCH ×3 (06:28→21:34)
[2021-03-23] MEDS: metFORMIN HCL 500 MG TABLET (FP) PO SCH ×2 (06:28→16:59)
[2021-03-23] MEDS: PRENATAL VITAMINS W/ FOLIC ACID TABLET (FP) PO SCH (10:23)
[2021-03-23] MEDS: NICOTINE 7 MG/24 HOURS TOPICAL PATCH TD SCH (10:23)
[2021-03-23] MEDS ORDERED: COLLOIDAL OATMEAL 1 BAR EACH TP PRN (15:30)
[2021-03-23] MEDS: MIRTAZAPINE 15 MG TABLET (FP) PO SCH (21:33)
[2021-03-23] MEDS: diphenhydrAMINE HCL 25 MG CAPSULE (FP) PO SCH (21:34)
[2021-03-23] MEDS: THIAMINE HCL 100 MG TABLET (FP) PO SCH (21:34)
[2021-03-24] MEDS: METHOCARBAMOL 500 MG TABLET PO SCH ×3 (06:17→21:19)
[2021-03-24] MEDS: metFORMIN HCL 500 MG TABLET (FP) PO SCH ×2 (06:17→16:48)
[2021-03-24] MEDS: NICOTINE 7 MG/24 HOURS TOPICAL PATCH TD SCH (11:03)
[2021-03-24] MEDS: PRENATAL VITAMINS W/ FOLIC ACID TABLET (FP) PO SCH (11:03)
[2021-03-24] MEDS: MIRTAZAPINE 15 MG TABLET (FP) PO SCH (21:19)
[2021-03-24] MEDS: THIAMINE HCL 100 MG TABLET (FP) PO SCH (21:19)
[2021-03-24] MEDS: diphenhydrAMINE HCL 25 MG CAPSULE (FP) PO SCH (21:19)
[2021-03-25] MEDS: metFORMIN HCL 500 MG TABLET (FP) PO SCH (06:27)
[2021-03-25] MEDS: METHOCARBAMOL 500 MG TABLET PO SCH (06:27)
[2021-03-25 07:12] VITALS: BP 134/91; PULSE 80; TEMP 97.3
== END 2021-03-25 09:30 | disposition home or self-care (01) | DRG 772 ==
LOC: YASAS 14:54 → Y5N 14:55
PROVIDERS: ADMIT Allergy & Immunology; ATTEND Allergy & Immunology
PROC: HZ42ZZZ Group Counseling for Substance Abuse Treatment, Cognitive-Behavioral (ICD-10-PCS; principal; 2021-03-11)
DX: F10.20 Alcohol dependence, uncomplicated (principal); F11.20 Opioid dependence, uncomplicated; F14.20 Cocaine dependence, uncomplicated; F12.20 Cannabis dependence, uncomplicated; F17.210 Nicotine dependence, cigarettes, uncomplicated; F19.282 Other psychoactive substance dependence with psychoactive substance-induced sleep disorder; F19.24 Other psychoactive substance dependence with psychoactive substance-induced mood disorder; F31.9 Bipolar disorder, unspecified; F20.9 Schizophrenia, unspecified; F90.9 Attention-deficit hyperactivity disorder, unspecified type; I10 Essential (primary) hypertension; E11.9 Type 2 diabetes mellitus without complications; Z79.84 Long term (current) use of oral hypoglycemic drugs
CPT/HCPCS: 82962; C9803; U0003; U0005